=== PATIENT | male | born 1970 | race Caucasian/White ===

== ENCOUNTER 2017-06-06 01:54 | Emergency (ER) | payer BC ==
[2017-06-06 01:54] VITALS: BMI 26.9
[2017-06-06 02:16] VITALS: RESP 18; TEMP 98.9
[2017-06-06] MEDS ORDERED: Sodium Chloride 0.9% 1,000 ML IV STA (02:44)
--- NOTE | 2017-06-06 02:48 | ED PDOC ---
Arrival/HPI - General Chief Complaint: Abdominal Pain Time Seen by Provider: 06/06/17 02:27 Historian: Patient - History of Present Illness Narrative History of Present Illness (Text): 06/06/17 02:44 Toribio Maki is a 47 year old male, who denies any significant past medical history, who presents to the Emergency department complaining of abdominal discomfort. Patient states he began experiencing upper abdominal discomfort radiating to his back with associated bloating, nausea, and vomiting after eating turkey at a restaurant yesterday evening. Patient denies any fever, chills, chest pain, shortness of breath, diarrhea, urinary symptoms, neck pain, headache, dizziness, or any other complaints. Symptom Onset: Gradual Symptom Course: Unchanged Activities at Onset: Light Context: Home Past Medical History - Provider Review Nursing Documentation Reviewed: Yes - Infectious Disease Hx of Infectious Diseases: None - Cardiac Hx Cardiac Disorders: No - Pulmonary Hx Respiratory Disorders: No - Neurological Hx Vertigo: Yes - HEENT Hx HEENT Disorder: No - Renal Hx Renal Disorder: No - Endocrine/Metabolic Hx Endocrine Disorders: No - Hematological/Oncological Hx Blood Disorders: No - Integumentary Hx Dermatological Disorder: No - Musculoskeletal/Rheumatological Hx Musculoskeletal Disorders: No - Gastrointestinal Hx Gastrointestinal Disorders: No - Genitourinary/Gynecological Hx Genitourinary Disorders: No - Psychiatric Hx Psychophysiologic Disorder: No Hx Substance Use: Yes - Anesthesia Hx Anesthesia: No Hx Anesthesia Reactions: No Hx Malignant Hyperthermia: No Family/Social History - Physician Review Nursing Documentation Reviewed: Yes Family/Social History: Unknown Family HX Smoking Status: Current Some Days Smoker Hx Alcohol Use: No Hx Substance Use: Yes Substance used: Marijuana Allergies/Home Meds Allergies/Adverse Reactions: Allergies penicillamine Allergy (Verified 06/08/16 00:48) RASH Review of Systems - Physician Review All systems were reviewed & negative as marked: Yes - Review of Systems Constitutional: Normal. absent: Fevers Eyes: Normal ENT: Normal Respiratory: Normal. absent: SOB, Cough Cardiovascular: Normal. absent: Chest Pain Gastrointestinal: Abdominal Pain, Nausea, Vomiting. absent: Diarrhea Genitourinary Male: Normal. absent: Dysuria, Frequency, Hematuria, Urinary Output Changes Musculoskeletal: Back Pain. absent: Neck Pain Skin: Normal. absent: Rash Neurological: Normal. absent: Headache, Dizziness Endocrine: Normal Hemo/Lymphatic: Normal Psychiatric: Normal Physical Exam Vital Signs Reviewed: Yes Vital Signs Temp Pulse Resp BP Pulse Ox 06/06/17 04:14 71 18 107/47 L 97 06/06/17 02:11 98.9 F 90 18 131/57 L 95 Temperature: Afebrile Blood Pressure: Normal Pulse: Regular Respiratory Rate: Normal Appearance: Positive for: Well-Appearing, Non-Toxic, Comfortable Pain Distress: None Mental Status: Positive for: Alert and Oriented X 3 - Systems Exam Head: Present: Atraumatic, Normocephalic Pupils: Present: PERRL Extroacular Muscles: Present: EOMI Conjunctiva: Present: Normal Mouth: Present: Moist Mucous Membranes Neck: Present: Normal Range of Motion Respiratory/Chest: Present: Clear to Auscultation, Good Air Exchange. No: Respiratory Distress, Accessory Muscle Use Cardiovascular: Present: Regular Rate and Rhythm, Normal S1, S2. No: Murmurs Abdomen: Present: Normal Bowel Sounds. No: Tenderness, Distention, Peritoneal Signs Back: Present: Normal Inspection Upper Extremity: Present: Normal Inspection. No: Cyanosis, Edema Lower Extremity: Present: Normal Inspection. No: Edema Neurological: Present: GCS=15, CN II-XII Intact, Speech Normal Skin: Present: Warm, Dry, Normal Color. No: Rashes Psychiatric: Present: Alert, Oriented x 3, Normal Insight, Normal Concentration Medical Decision Making ED Course and Treatment: 06/06/17 02:44 Impression: 47 year old male complaining of upper abdominal discomfort, nausea, and vomiting since yesterday evening. Plan: -- Labs, lipase -- IV fluids -- Zofran -- Toradol -- Pepcid -- Reassess and disposition Progress Notes: 06/06/17 05:26 On re-evaluation, patient feels 100% better after medication and is in no acute distress. Tolerating PO without difficulty. I have discussed the results and plan with the patient, who expresses understanding. Patient in agreement with plan to be discharged home. Patient is stable for discharge. Patient was instructed to follow up with physician or return if symptoms worsen or new concerning symptoms arise. - Lab Interpretations Lab Results: 06/06/17 02:50 06/06/17 02:50 Lab Results 06/06/17 02:50: WBC 9.1, RBC 4.75, Hgb 14.4, Hct 42.6, MCV 89.7, MCH 30.3, MCHC 33.8, RDW 13.3, Plt Count 135, MPV 12.2 H 06/06/17 02:50: Sodium 140, Potassium 3.3 L, Chloride 103, Carbon Dioxide 26, Anion Gap 14, BUN 26 H, Creatinine 0.8, Est GFR ( Amer) > 60, Est GFR ( Non-Af Amer) > 60, Random Glucose 133 H, Calcium 9.0, Total Bilirubin 0.7, AST 35, ALT 38, Alkaline Phosphatase 63, Total Protein 7.6, Albumin 4.4, Globulin 3.1, Albumin/Globulin Ratio 1.4, Lipase 44 I have reviewed the lab results: Yes - Medication Orders Current Medication Orders: Discontinued Medications Famotidine (Pepcid) 20 mg IVP STAT STA Stop: 06/06/17 02:45 Last Admin: 06/06/17 03:00 Dose: 20 mg IVP Administration Document 06/06/17 03:00 CNR (Rec: 06/06/17 03:00 [id number] Charges for Administration # of IVP Administrations 1 Sodium Chloride (Sodium Chloride 0.9%) 1,000 mls @ 999 mls/hr IV .Q1H1M STA Stop: 06/06/17 03:44 Last Admin: 06/06/17 03:00 Dose: 999 mls/hr eMAR Start Stop Document 06/06/17 03:00 CNR (Rec: 06/06/17 03:00 [facility]NR [id number] Intravenous Solution Start Date 06/06/17 Start Time 03:00 End Date 06/06/17 End time 03:30 Total Infusion Time 30 Ketorolac Tromethamine (Toradol) 30 mg IVP ONCE ONE Stop: 06/06/17 02:45 Last Admin: 06/06/17 03:00 Dose: 30 mg MAR Pain Assessment Document 06/06/17 03:00 CNR (Rec: 06/06/17 03:00 [facility]NR [id number] Pain Reassessment Is this a pain reassessment? Yes IVP Administration Document 06/06/17 03:00 CNR (Rec: 06/06/17 03:00 [facility]NR [id number] Charges for Administration # of IVP Administrations 1 Ondansetron HCl (Zofran Inj) 4 mg IVP ONCE ONE Stop: 06/06/17 02:45 Last Admin: 06/06/17 03:00 Dose: 4 mg IVP Administration Document 06/06/17 03:00 CNR (Rec: 06/06/17 03:00 CNR [facility] [id number] Charges for Administration # of IVP Administrations 1 Potassium Chloride (K-Dur 20 Meq Er Tab) 20 meq PO STAT STA Stop: 06/06/17 04:30 Last Admin: 06/06/17 04:40 Dose: 20 meq - Scribe Statement The provider has reviewed the documentation as recorded by the Janeth Baird Provider Scribe Attestation: All medical record entries made by the Scribe were at my direction and personally dictated by me. I have reviewed the chart and agree that the record accurately reflects my personal performance of the history, physical exam, medical decision making, and the department course for this patient. I have also personally directed, reviewed, and agree with the discharge instructions and disposition. Disposition/Present on Arrival - Present on Arrival Any Indicators Present on Arrival: No History of DVT/PE: No History of Uncontrolled Diabetes: No Urinary Catheter: No History of Decub. Ulcer: No History Surgical Site Infection Following: None - Disposition Have Diagnosis and Disposition been Completed?: Yes Diagnosis: Gastritis Disposition: HOME/ ROUTINE Disposition Time: 05:26 Patient Plan: Discharge Patient Problems: Current Active Problems Problem Status Onset Gastritis Acute Condition: GOOD Discharge Instructions (ExitCare): Gastritis (ED) Additional Instructions: Take meds as prescribed/follow up with your doctor this week Prescriptions: Phenobarb/Hyoscy/Atropine/Scop [ Tablet] 16.2 mg PO Q6 PRN #12 tablet PRN Reason: Dyspepsia Ondansetron [Zofran Odt] 4 mg PO Q8 PRN #12 odt PRN Reason: Nausea/Vomiting Forms: [employer] (Bulgarian)
[2017-06-06 03:16] LABS: HEMATOCRIT 42.6 % (42.0-52.0); MEAN CELL VOLUME 89.7 fl (80.0-105.0); MEAN CORPUSCULAR HEMOGLOBIN 30.3 pg (25.0-35.0); MEAN CORPUSCULAR HGB CONC 33.8 g/dl (31.0-37.0); MEAN PLATELET VOLUME 12.2 fl (7.0-11.0); RED CELL DISTRIBUTION WIDTH 13.3 % (11.5-14.5); WHITE BLOOD COUNT 9.1 10^3/ul (4.5-11.0)
[2017-06-06 03:42] LABS: ALB/GLOB RATIO 1.4 (1.1-1.8); ALKALINE PHOSPHATASE 63 U/L (38-126); ALT/SGPT 38 U/L (7-56); AST/SGOT 35 U/L (17-59); BILIRUBIN,TOTAL 0.7 mg/dL (0.2-1.3); BLOOD UREA NITROGEN 26 mg/dL (7-21); CARBON DIOXIDE 26 mmol/L (21-33); CHLORIDE 103 mmol/L (98-107); GFR AFRICAN-AMERICAN > 60; GLUCOSE,RANDOM 133 mg/dL (70-110); LIPASE 44 U/L (23-300); POTASSIUM 3.3 mmol/L (3.6-5.0); SODIUM 140 mmol/L (132-148); TOTAL PROTEIN 7.6 g/dL (5.8-8.3)
[2017-06-06 04:15] VITALS: BP 107/47; PULSE 71; O2SAT 97
[2017-06-06] MEDS ORDERED: Potassium Chloride 20 mEq ER Tab PO STA (04:29)
== END 2017-06-06 05:43 | disposition home or self-care (01) ==
LOC: ED 01:54
DX: K29.70 Gastritis, unspecified, without bleeding (principal)
CPT/HCPCS: 80053; 83690; 85027; 96374; 96375; 99284; J1885; J2405; J7040

== ENCOUNTER 2018-01-16 22:13 | Emergency (ER) | payer BC ==
[2018-01-16 22:20] VITALS: BMI 24.2
[2018-01-16 22:22] VITALS: RESP 18; TEMP 98.2
--- NOTE | 2018-01-16 23:15 | ED PDOC ---
Arrival/HPI - General Chief Complaint: Upper Extremity Problem/Injury Time Seen by Provider: 01/16/18 22:55 Historian: Patient - History of Present Illness Narrative History of Present Illness (Text): 01/16/18 22:57 A 47 year old male, with no significant past medical history, presents to the emergency department with a complaint of 2 month duration left-sided neck, arm, and leg pain and numbness. Patient reports that he sustained an injury to his lower back at work after lifting something 7-8 months ago for which he was seen by a chiropractor. Patient states that this current episode of pain started 2 days ago and has taken Motrin with minimal relief of his symptoms. The patient denies fevers, chills, headache, weakness, chest pain, shortness of breath, dyspnea on exertion, cough, abdominal pain, nausea, vomiting, diarrhea, urinary/ bowel changes, or any other complaint. Time/Duration: Other (2 months) Symptom Onset: Gradual Symptom Course: Unchanged Activities at Onset: Rest, Light Context: Home Past Medical History - Provider Review Nursing Documentation Reviewed: Yes - Infectious Disease Hx of Infectious Diseases: None - Cardiac Hx Cardiac Disorders: No - Pulmonary Hx Respiratory Disorders: No - Neurological Hx Neurological Disorder: Yes Hx Vertigo: Yes - HEENT Hx HEENT Disorder: No - Renal Hx Renal Disorder: No - Endocrine/Metabolic Hx Endocrine Disorders: No - Hematological/Oncological Hx Blood Disorders: No - Integumentary Hx Dermatological Disorder: No - Musculoskeletal/Rheumatological Hx Musculoskeletal Disorders: No - Gastrointestinal Hx Gastrointestinal Disorders: No - Genitourinary/Gynecological Hx Genitourinary Disorders: No - Psychiatric Hx Psychophysiologic Disorder: No Hx Substance Use: Yes - Anesthesia Hx Anesthesia: No Hx Anesthesia Reactions: No Hx Malignant Hyperthermia: No Family/Social History - Physician Review Nursing Documentation Reviewed: Yes Family/Social History: No Known Family HX Smoking Status: Current Some Days Smoker Hx Alcohol Use: No Hx Substance Use: Yes Substance used: Marijuana Allergies/Home Meds Allergies/Adverse Reactions: Allergies Penicillins Allergy (Verified 01/16/18 22:20) RASH Review of Systems - Physician Review All systems were reviewed & negative as marked: Yes - Review of Systems Constitutional: absent: Fevers, Night Sweats Respiratory: absent: SOB, Cough Cardiovascular: absent: Chest Pain, DELUCA Gastrointestinal: absent: Abdominal Pain, Stool Changes, Diarrhea, Nausea, Vomiting Genitourinary Male: absent: Urinary Output Changes Musculoskeletal: Neck Pain (Left- sided neck pain and numbness that radiated down left upper and lower extremities.) Neurological: absent: Headache Physical Exam - Physical Exam Narrative Physical Exam (Text): 01/16/18 23:16 Gen: VS reviewed, alert, well developed, well nourished, nontoxic, mild distress. ENT: Normal pharynx. Eye: EOMI, PERRL. Neck: No JVD, supple, no adenopathy. Limited ROM on rotation, flexion, and extension of neck secondary to pain. No tenderness on palpation. CV: Regular rate, regular rhythm, no rubs, no murmur, no gallops, S1, S2, pulses equal and strong. Pulm: No distress, clear to auscultation, no wheeze, no rhonchi, breath sounds equal, no rales. Abd: Soft, nontender, no guarding, no rebound, no rigidity, normal bowel sounds. Ext: No edema. Motor 5/5 of all 4 extremities. Skin: Good color, no rash, no cyanosis. Psych: Responds appropriately to questions, normal affect. Neuro: Oriented x 3, CN2-12 intact grossly, motor intact. Diminished sensation in the left posterior arm, posterior hand, dorsum of the foot. Vital Signs Reviewed: Yes Vital Signs Temp Pulse Resp BP Pulse Ox 01/17/18 01:18 66 18 120/75 98 01/16/18 22:21 98.2 F 61 18 123/77 96 Temperature: Afebrile Blood Pressure: Normal Pulse: Regular Respiratory Rate: Normal Appearance: Positive for: Well-Appearing, Non-Toxic, Comfortable Pain Distress: None Mental Status: Positive for: Alert and Oriented X 3 Medical Decision Making ED Course and Treatment: 01/16/18 23:19 Impression: A 47 year old male presents to the emergency department with complaint of 2 month duration neck, arm, and leg numbness worsening over the past 2 days. Plan: -- Cervical/ Lumbar Spine X-Rays -- Tylenol, Flexeril, Decadron, and Toradol -- Reassess and disposition Progress Notes: 01/17/18 00:57: On re-evaluation, patient reports improvement of his symptoms, but notes his symptoms are still there. I have discussed the results and plan with the patient, who expresses understanding. Patient in agreement with plan to be discharged home. Patient is stable for discharge. Patient was instructed to follow up with PMD for further treatment and MRI or return if symptoms worsen or new concerning symptoms arise. 01/17/18 01:01 patient presents to the Ed with simultaneous cervical and lumbar radicular pain. pain mostly in the left cervical region. there is no hx of trauma, no hx ivda, no hx cancer, no weakness, patient has longstanding numbness for several weaks now. xray were done to eval for acute bony pathology. patient has been informed and is agreeable to proposed plan for discharged and oupt follow up where he would need MRI of both the cervical and lumbar region. patient remained stable throughout ED course, did exhibit improvement in symptoms. - RAD Interpretation Narrative RAD Interpretations (Text): 01/17/18 00:53 Cervical Spine X-Ray read and interpreted by me shows straightening of the C-spine and multi-level DJD. Lumbar Spine X-Ray shows no fracture. Radiology Orders: 01/16/18 23:00 CERVICAL SPINE >18YR W/OBLIQUE [RAD] Stat 01/16/18 23:01 LS SPINE WITH OBL > 18 YRS OLD [RAD] Stat - Medication Orders Current Medication Orders: Discontinued Medications Acetaminophen (Tylenol 325mg Tab) 975 mg PO STAT STA Stop: 01/16/18 23:02 Last Admin: 01/16/18 23:19 Dose: 975 mg MAR Pain/Vitals Document 01/16/18 23:19 SS (Rec: 01/16/18 23:24 SS [id number]) Pain Reassessment Is This A Pain ReAssessment? No Sleep Is patient sleeping during reassessment? No Presence of Pain Presence of Pain Yes Pain Scale Used Pain Scale Used Numeric Location Pain Location Body Site Back Intensity 10 Scale Used Numeric Cyclobenzaprine HCl (Flexeril) 5 mg PO STAT STA Stop: 01/16/18 23:02 Last Admin: 01/16/18 23:19 Dose: 5 mg Dexamethasone (Decadron Inj) 10 mg IM STAT STA Stop: 01/16/18 23:02 Last Admin: 01/16/18 23:24 Dose: 10 mg IM Administration Charges Document 01/16/18 23:24 SS (Rec: 01/16/18 23:25 SS [id number]) Injection Site MAR Injection Site Left Vastus Lateralis Charges for Administration # of IM Administrations 1 Ketorolac Tromethamine (Toradol) 60 mg IM STAT STA Stop: 01/16/18 23:07 Last Admin: 01/16/18 23:24 Dose: 60 mg MAR Pain Assessment Document 01/16/18 23:24 SS (Rec: 01/16/18 23:24 SS [id number]) Pain Reassessment Is this a pain reassessment? No Presence of Pain Presence of Pain Yes Pain Scale Used Pain Scale Used Numeric Description Description Constant Intensity of Pain at present 10 IM Administration Charges Document 01/16/18 23:24 SS (Rec: 01/16/18 23:24 SS [id number]) Injection Site MAR Injection Site Left Deltoid Charges for Administration # of IM Administrations 1 - Scribe Statement The provider has reviewed the documentation as recorded by the Scribe Elvie De La Cruz Provider Scribe Attestation: All medical record entries made by the Scribe were at my direction and personally dictated by me. I have reviewed the chart and agree that the record accurately reflects my personal performance of the history, physical exam, medical decision making, and the department course for this patient. I have also personally directed, reviewed, and agree with the discharge instructions and disposition. Disposition/Present on Arrival - Present on Arrival Any Indicators Present on Arrival: No History of DVT/PE: No History of Uncontrolled Diabetes: No Urinary Catheter: No History of Decub. Ulcer: No History Surgical Site Infection Following: None - Disposition Have Diagnosis and Disposition been Completed?: Yes Diagnosis: Radiculopathy of cervical spine, Radicular pain of lumbosacral region Disposition: HOME/ ROUTINE Disposition Time: 01:01 Condition: STABLE Discharge Instructions (ExitCare): Radiculopathy Print Language: CITIZEN OF [place] Additional Instructions: BOOGIE GOODE, thank you for letting us take care of you today. Your provider was Dr. Luis Liang and you were treated for radiculopathy of the neck and radiculopathy of the low back. The emergency medical care you received today was directed at your acute symptoms. If you were prescribed any medication , please fill it and take as directed. It may take several days for your symptoms to resolve. Return to the Emergency Department if your symptoms worsen , do not improve, or if you have any other problems. Please contact your doctor or call one of the physicians/clinics you have been referred to that are listed on the Patient Visit Information form that is included in your discharge packet. Bring any paperwork you were given at discharge with you along with any medications you are taking to your follow up visit. Our treatment cannot replace ongoing medical care by a primary care provider outside of the emergency department. Thank you for allowing the [facility] team to be part of your care today. If you had an X-Ray or CT scan: A Radiologist will review the ED reading if any change in treatment is needed we will contact you. If you had a blood, urine, or wound culture: It will take several days for the results, if any change in treatment is needed we will contact you. If you had an STI test: It will take 48 hours for the results. Please call after 1 week if you have not heard back. Prescriptions: Cyclobenzaprine [Flexeril] 5 mg PO TID #15 tab Ibuprofen [Motrin Tab] 600 mg PO QID #42 tab Prednisone [Deltasone] 20 mg PO DAILY 7 Days #14 tablet Forms: [employer] (Tajik), WORK NOTE
[2018-01-17 01:19] VITALS: BP 120/75; PULSE 66; O2SAT 98
--- NOTE | 2018-01-17 09:13 | RAD ---
Date of service: 01/17/2018 PROCEDURE: Cervical Spine Radiographs. HISTORY: Pain. COMPARISON: None. FINDINGS: BONES: Alignment maintained. No fracture. Dens Intact. DISC SPACES: Normal. SOFT TISSUES: Normal. No prevertebral soft tissue swelling. OTHER FINDINGS: None. IMPRESSION: Normal cervical spine radiographs
--- NOTE | 2018-01-17 09:32 | RAD ---
Date of service: 01/17/2018 PROCEDURE: Radiographs of the Lumbar Spine. HISTORY: radicular pain COMPARISON: No prior. FINDINGS: BONES: Normal alignment. No listhesis. No fracture. DISC SPACES: Unremarkable. OTHER FINDINGS: None. IMPRESSION: Unremarkable radiographs of the lumbar spine.
== END 2018-01-17 01:18 | disposition home or self-care (01) ==
LOC: ED 22:13
DX: M54.12 Radiculopathy, cervical region (principal); M54.17 Radiculopathy, lumbosacral region
CPT/HCPCS: 72050; 72110; 96372; 99283; J1100; J1885